=== PATIENT | female | born 2000 | race Caucasian/White ===

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

== ENCOUNTER 2020-05-23 09:41 | Emergency (ER) | payer MEDICAID, OTHER, SELFPAY ==
[~2020-05-23] VITALS: Ht 162.6 cm; Wt 116.0 kg
[~2020-05-23 09:41] MED LIST changes: -TRAZ-160 PO; +TRAZ-252 PO
[2020-05-23 10:26] LABS: BASO # 0.1 10^3/uL (0.0-0.2); BASO % 0.6 % (0.0-1.0); EOS # 0.2 10^3/uL (0.0-0.5); EOS % 1.2 % (0.0-3.0); HEMATOCRIT 45.6 % (36.0-47.0); HEMOGLOBIN 14.6 g/dl (12.0-15.5); LYMPH # 1.8 10^3/uL (1.5-5.0); MEAN CORPUSCULAR HEMOGLOBIN 28.7 pg (27.0-33.0); MEAN CORPUSCULAR VOLUME 89.8 fl (80.0-96.0); MONO # 0.6 10^3/uL (0.0-0.8); MONO % 4.9 % (0.0-5.0); NEUTROPHILS % 78.8 % (36.0-66.0); PLATELET COUNT, AUTOMATED 315 10^3/uL (150-450); RED BLOOD COUNT 5.08 10^6/uL (4.00-5.40); WHITE BLOOD COUNT 12.6 10^3/uL (4.0-10.0)
[2020-05-23] MEDS ORDERED: NS 1,000 ML IV ONE (10:30)
[2020-05-23] MEDS ORDERED: ONDANSETRON 4MG/2ML VIAL IV ONE (10:30)
[2020-05-23] MEDS ORDERED: KETOROLAC 30 MG/ML 1ML VIAL IV ONE (10:30)
[2020-05-23 10:52] LABS: ALBUMIN 4.6 GM/DL (3.2-5.2); BILIRUBIN,DIRECT 0.1 MG/DL (0.0-0.2); BILIRUBIN,TOTAL 0.6 MG/DL (0.2-1.0); TOTAL PROTEIN 8.3 GM/DL (6.4-8.2)
[2020-05-23] MEDS ORDERED: CEFD1CAP8 PO (13:58)
[2020-05-23] MEDS ORDERED: cefTRIAXone SOD 1 GM in D5W MINI-BAG PLUS 50 ML IV ONE (14:00)
[2020-05-23 14:50] VITALS: BP 155/69
--- NOTE | 2020-05-23 15:53 | REP ---
INDICATION: back pain, dysuria COMPARISON: None. TECHNIQUE: Helical scanning is acquired in 4 mm axial images were reformatted. Coronal and sagittal MPR images were generated and reviewed. FINDINGS: Digital preliminary die maker electronic radiograph demonstrates a normal bowel gas pattern. Axial CT images through the lung bases demonstrate no evidence of infiltrate or pleural effusion. There is a small area of pleuroparenchymal fibrosis in the left lower lobe posterolaterally. The liver and the spleen are normal in size homogeneous in texture. No abnormality is noted in the gallbladder or the pancreas. No adrenal lesion is seen. Small and large intestinal bowel loops are normal in the abdomen and pelvis. A normal appendix seen in the right lower quadrant. Urinary bladder is unremarkable. No uterine or significant ovarian abnormality is seen. There is a small follicle cyst in the right ovary. There is [id number] right-sided hydronephrosis and there is perinephric streaking and periureteral streaking associated with right ureteral obstruction. No obstructing mass lesion is seen. No right ureteral calculus is observed. No bladder calculus is seen. No intrarenal calculus is noted on the right. However, there is a 3 mm intrarenal calculus in the upper pole of the left kidney and another tiny 1-2 mm calculus is seen in the lower pole of the left kidney. No bony abnormality is seen. No abdominal wall defect is seen. IMPRESSION: Right hydronephrosis and hydroureter with perinephric and periureteral stranding. No calculus seen. Findings are compatible with recent stone passage. There are contralateral intrarenal calculi in the left kidney without left-sided hydronephrosis. <Electronically signed by Malcolm Godoy > 05/23/20 [id number]
== END 2020-05-23 14:51 | disposition home or self-care (01) ==
LOC: M ED 09:41
DX: N20.0 Calculus of kidney (principal); N13.30 Unspecified hydronephrosis; N39.0 Urinary tract infection, site not specified; F17.200 Nicotine dependence, unspecified, uncomplicated
CPT/HCPCS: 74176; 80047; 80076; 81001; 83690; 84702; 85025; 96361; 96365; 96375; 99284; J0696; J1885; J2405

== ENCOUNTER 2021-10-31 15:47 | Inpatient (IN) | payer MEDICAID, OTHER, SELFPAY ==
[~2021-10-31] VITALS: Ht 162.6 cm; Wt 121.0 kg
[~2021-10-31 15:47] MED LIST changes: +CEFD300C41 PO; +RISP-8; -RISP1TAB3
[2021-10-31 17:24] LABS: HEMATOCRIT 41.6 % (36.0-47.0); HEMOGLOBIN 13.9 g/dl (12.0-15.5); MEAN CORPUSCULAR HEMOGLOBIN 30.4 pg (27.0-33.0); MEAN CORPUSCULAR HGB CONC 33.4 g/dl (32.0-36.5); PLATELET COUNT, AUTOMATED 226 10^3/uL (150-450); RED BLOOD COUNT 4.57 10^6/uL (4.00-5.40); WHITE BLOOD COUNT 7.4 10^3/uL (4.0-10.0)
[2021-10-31 17:33] LABS: RSV AMPLIFICATION NEGATIVE (NEGATIVE)
[2021-10-31 17:54] LABS: ACETAMINOPHEN LEVEL < 2.0 UG/ML (10.0-30.0); ALBUMIN 4.3 GM/DL (3.2-5.2); ALT/SGPT 70 U/L (12-78); BILIRUBIN,DIRECT 0.3 MG/DL (0.0-0.2); BILIRUBIN,TOTAL 1.1 MG/DL (0.2-1.0); BLOOD UREA NITROGEN 8 MG/DL (7-18); CALCIUM LEVEL 9.3 MG/DL (8.5-10.1); CARBON DIOXIDE LEVEL 24 MEQ/L (21-32); CHLORIDE LEVEL 107 MEQ/L (98-107); CREATININE FOR GFR 0.67 MG/DL (0.55-1.30); ETHYL ALCOHOL (ETHANOL) < 0.003 % (0.000-0.010); GLOMERULAR FILTRATION RATE > 60.0 (>60); GLUCOSE, FASTING 93 MG/DL (70-100); POTASSIUM SERUM 3.8 MEQ/L (3.5-5.1); SALICYLATE LEVEL 3.3 MG/DL (5.0-30.0); SODIUM LEVEL 139 MEQ/L (136-145)
[2021-10-31 17:56] LABS: HCG, SERUM QUALITATIVE NEGATIVE (NEGATIVE)
[2021-10-31] MEDS ORDERED: LATU40TA2 PO (19:05)
[2021-10-31] MEDS ORDERED: AMLO1TAB24 PO (19:05)
[2021-10-31] MEDS ORDERED: TRAZ-186 PO (19:06)
[2021-10-31] MEDS ORDERED: MELA3TAB30 PO (19:07)
[2021-11-01 06:22] LABS: AMPHETAMINES LEVEL URINE NEGATIVE (NEGATIVE); BARBITURATES URINE NEGATIVE (NEGATIVE); BENZODIAZEPINES URINE NEGATIVE (NEGATIVE); CANNABINOIDS URINE POSITIVE (NEGATIVE); COCAINE METABOLITE URINE NEGATIVE (NEGATIVE); METHADONE URINE NEGATIVE (NEGATIVE); OPIATES URINE NEGATIVE (NEGATIVE); PHENCYCLIDINE URINE NEGATIVE (NEGATIVE)
[2021-11-01] MEDS ORDERED: CHLORTHALIDONE 12.5MG PER 1/2 TABLET PO SCH (09:00)
[2021-11-01] MEDS ORDERED: MED REC COMMENT (10:22)
[2021-11-01] MEDS ORDERED: HOME MED LIST COMPLETE! XX SCH (10:25)
[2021-11-01] MEDS ORDERED: IBUPROFEN 400MG TAB PO PRN (15:10)
[2021-11-01] MEDS ORDERED: MOM 30ML SUSPENSION UDC PO PRN (15:10)
[2021-11-01] MEDS ORDERED: MAALOX 30 ML SUSP *UDC PO PRN (15:10)
[2021-11-01] MEDS: NICOTINE 21MG/24HR 1 EA TRANSDERMAL TD SCH (17:00)
[2021-11-01] MEDS ORDERED: NICOTINE 21MG/24HR 1 EA TRANSDERMAL TD SCH (17:09)
[2021-11-01] MEDS: ACETAMINOPHEN TAB 650MG DOSE (2X325MG) PO PRN (20:29)
[2021-11-02] MEDS ORDERED: OLANZapine 10 MG TAB PO ONE (00:50)
[2021-11-02] MEDS ORDERED: LORazepam 2 MG TAB PO STA (02:18)
[2021-11-02] MEDS ORDERED: NICOTINE 21MG/24HR 1 EA TRANSDERMAL TD SCH (09:00)
[2021-11-02] MEDS ORDERED: CHLORTHALIDONE 12.5MG PER 1/2 TABLET PO SCH (09:00)
[2021-11-02] MEDS: NICOTINE 21MG/24HR 1 EA TRANSDERMAL TD SCH (09:56)
[2021-11-02] MEDS: amLODIPine 5 MG TAB PO SCH (09:57)
[2021-11-02] MEDS: ACETAMINOPHEN TAB 650MG DOSE (2X325MG) PO PRN (09:57)
[2021-11-02] MEDS: LORazepam 1 MG TAB PO PRN ×2 (09:58→20:36)
[2021-11-02] MEDS ORDERED: OLANZapine ORAL DISINTEGRATING TAB 5MG PO STA (10:57)
[2021-11-02] MEDS: LURASIDONE 20 MG TAB (LATUDA) PO SCH (20:36)
[2021-11-02] MEDS: traZODone 50 MG TAB PO PRN (20:36)
[2021-11-03] MEDS: LORazepam 1 MG TAB PO PRN ×2 (06:33→20:41)
[2021-11-03] MEDS: amLODIPine 5 MG TAB PO SCH (07:53)
[2021-11-03] MEDS: NICOTINE 21MG/24HR 1 EA TRANSDERMAL TD SCH (07:53)
[2021-11-03] MEDS: LURASIDONE 20 MG TAB (LATUDA) PO SCH (20:41)
[2021-11-03] MEDS: traZODone 50 MG TAB PO PRN (20:41)
[2021-11-03] MEDS: ACETAMINOPHEN TAB 650MG DOSE (2X325MG) PO PRN (22:03)
[2021-11-04] MEDS: LORazepam 1 MG TAB PO PRN ×2 (06:49→21:10)
[2021-11-04] MEDS: NICOTINE 21MG/24HR 1 EA TRANSDERMAL TD SCH (09:21)
[2021-11-04] MEDS: amLODIPine 5 MG TAB PO SCH (09:21)
[2021-11-04] MEDS: NICOTINE 14 MG/24 HR TRANSDERMAL TD SCH (09:30)
[2021-11-04] MEDS ORDERED: MAALOX 30 ML SUSP *UDC PO PRN (12:45)
[2021-11-04] MEDS ORDERED: MOM 30ML SUSPENSION UDC PO PRN (12:45)
[2021-11-04 14:38] VITALS: BP 158/96
[2021-11-04] MEDS: traZODone 50 MG TAB PO PRN (20:01)
[2021-11-04] MEDS: LURASIDONE 20 MG TAB (LATUDA) PO SCH (20:01)
[2021-11-04] MEDS: ACETAMINOPHEN TAB 650MG DOSE (2X325MG) PO PRN (20:31)
[2021-11-05 06:37] VITALS: BP 158/99
[2021-11-05] MEDS: amLODIPine 5 MG TAB PO SCH (09:24)
[2021-11-05] MEDS: NICOTINE 14 MG/24 HR TRANSDERMAL TD SCH (09:24)
[2021-11-05] MEDS: LORazepam 1 MG TAB PO PRN (13:32)
[2021-11-05 16:44] VITALS: BP 130/72
[2021-11-05 20:59] VITALS: BP 168/92
[2021-11-05] MEDS ORDERED: LURASIDONE 20 MG TAB (LATUDA) PO SCH (21:00)
[2021-11-05] MEDS ORDERED: LURASIDONE HCL 40MG TAB (LATUDA) PO SCH (21:00)
[2021-11-05] MEDS: traZODone 50 MG TAB PO PRN (21:02)
[2021-11-05] MEDS: ACETAMINOPHEN TAB 650MG DOSE (2X325MG) PO PRN (21:02)
[2021-11-05] MEDS: QUEtiapine FUMARATE 50MG TAB PO SCH (21:03)
[2021-11-05] MEDS: lisinopriL 5 MG TAB PO SCH (21:03)
[2021-11-06] MEDS: LORazepam 1 MG TAB PO PRN (00:05)
[2021-11-06 07:00] VITALS: BP 106/51
[2021-11-06] MEDS: NICOTINE 14 MG/24 HR TRANSDERMAL TD SCH (08:16)
[2021-11-06] MEDS: lisinopriL 5 MG TAB PO SCH ×2 (08:17→21:02)
[2021-11-06] MEDS: amLODIPine 5 MG TAB PO SCH (08:18)
[2021-11-06 10:04] LABS: ALBUMIN 3.9 GM/DL (3.2-5.2); ALT/SGPT 96 U/L (12-78); BILIRUBIN,DIRECT 0.2 MG/DL (0.0-0.2); BILIRUBIN,TOTAL 0.7 MG/DL (0.2-1.0); CHOLESTEROL LEVEL 129 MG/DL (<200); CHOLESTEROL RISK RATIO 2.804 (<5); HDL CHOLESTEROL 46 MG/DL (>40); LDL CHOLESTEROL 59 MG/DL (<100); NON-HDL-C 83 MG/DL; TOTAL PROTEIN 7.2 GM/DL (6.4-8.2); TRIGLYCERIDES LEVEL 122 MG/DL (<150)
[2021-11-06 10:23] LABS: HEPATITIS B SURFACE ANTIGEN NEGATIVE (NEGATIVE)
[2021-11-06 10:34] LABS: HEMOGLOBIN A1c 4.5 %
[2021-11-06 10:51] LABS: HEPATITIS C VIRUS ABY INDEX 0.1 INDEX (<0.8)
[2021-11-06 10:52] LABS: HEPATITIS B CORE ANTIBODY IGM NEGATIVE (NEGATIVE)
[2021-11-06] MEDS ORDERED: LORazepam 2 MG TAB PO PRN (12:10)
[2021-11-06] MEDS: ACETAMINOPHEN TAB 650MG DOSE (2X325MG) PO PRN (12:23)
[2021-11-06] MEDS: OXcarbazepine 300 MG TAB PO SCH ×2 (16:44→21:02)
[2021-11-06 19:05] VITALS: BP 138/69
[2021-11-06] MEDS ORDERED: LURASIDONE 20 MG TAB (LATUDA) PO SCH (21:00)
[2021-11-06] MEDS: QUEtiapine FUMARATE 50MG TAB PO SCH (21:02)
[2021-11-07 06:39] VITALS: BP 144/90
[2021-11-07] MEDS: OXcarbazepine 300 MG TAB PO SCH ×3 (08:08→21:53)
[2021-11-07] MEDS: lisinopriL 5 MG TAB PO SCH ×2 (08:08→21:57)
[2021-11-07] MEDS: NICOTINE 14 MG/24 HR TRANSDERMAL TD SCH (08:08)
[2021-11-07] MEDS: amLODIPine 5 MG TAB PO SCH (08:08)
[2021-11-07 11:08] LABS: ANTINUCLEAR ANTIBODIES DIRECT Negative (Negative)
[2021-11-07 18:50] VITALS: BP 138/86
[2021-11-07] MEDS ORDERED: LURASIDONE 20 MG TAB (LATUDA) PO SCH (21:00)
[2021-11-07] MEDS: QUEtiapine FUMARATE 50MG TAB PO SCH (21:53)
[2021-11-08 06:10] VITALS: BP 111/62
[2021-11-08] MEDS: OXcarbazepine 300 MG TAB PO SCH (08:14)
[2021-11-08] MEDS: NICOTINE 14 MG/24 HR TRANSDERMAL TD SCH (08:14)
[2021-11-08 08:15] VITALS: BP 140/88
[2021-11-08] MEDS: amLODIPine 5 MG TAB PO SCH (08:15)
[2021-11-08] MEDS: lisinopriL 5 MG TAB PO SCH (08:15)
[2021-11-08] MEDS ORDERED: NEOSPORIN TOP OINT 15GM TOP SCH (09:00)
[2021-11-08] MEDS ORDERED: QUET50TA4 PO (09:46)
[2021-11-08] MEDS ORDERED: LATU20TA PO (09:46)
[2021-11-08] MEDS ORDERED: TRAZ-186 PO (09:46)
[2021-11-08] MEDS ORDERED: NICO14PA TD (09:46)
[2021-11-08] MEDS ORDERED: TRIL600T PO (09:46)
[2021-11-08] MEDS ORDERED: LATU80TA2 PO (09:46)
[2021-11-08] MEDS ORDERED: LISI5TAB11 PO (09:46)
[2021-11-08] MEDS ORDERED: BACTDSTA PO (09:55)
[2021-11-08] MEDS ORDERED: TRIPOIN9 TOP (09:55)
[2021-11-08] MEDS ORDERED: BACTRIM 160MG/800MG DS TAB PO ONE (10:00)
[2021-11-08] MEDS ORDERED: BACTRIM 160MG/800MG DS TAB PO SCH (21:00)
== END 2021-11-08 13:30 | disposition home or self-care (01) | DRG 753 ==
LOC: M ED 15:47 → UNDOADMIN 11-01 15:09 → M ED INP 11-01 15:09 → M PSY 11-04 14:27
PROVIDERS: ADMIT Student in an Organized Health Care Education/Training Program; ATTEND Student in an Organized Health Care Education/Training Program
DX: F31.0 Bipolar disorder, current episode hypomanic (principal); F12.90 Cannabis use, unspecified, uncomplicated; F17.210 Nicotine dependence, cigarettes, uncomplicated; F10.10 Alcohol abuse, uncomplicated; Z91.14 Patient's other noncompliance with medication regimen; Z79.899 Other long term (current) drug therapy; I10 Essential (primary) hypertension

== ENCOUNTER 2021-11-12 01:08 | Inpatient (IN) | payer MEDICAID ==
[~2021-11-12] VITALS: Ht 162.6 cm; Wt 125.5 kg
[~2021-11-12 01:08] MED LIST changes: +AMLO1TAB24 PO; +BACTDSTA PO; +LATU20TA PO; +LATU40TA2 PO; +LATU80TA2 PO; +LISI5TAB11 PO; +MED REC COMMENT; +MELA3TAB30 PO; +NICO14PA TD; +QUET50TA4 PO; +TRAZ-186 PO; +TRIL600T PO; +TRIPOIN9 TOP
[2021-11-12 02:18] LABS: HEMATOCRIT 44.8 % (36.0-47.0); HEMOGLOBIN 14.8 g/dl (12.0-15.5); MEAN CORPUSCULAR HEMOGLOBIN 30.5 pg (27.0-33.0); MEAN CORPUSCULAR VOLUME 92.2 fl (80.0-96.0); PLATELET COUNT, AUTOMATED 283 10^3/uL (150-450); RED BLOOD COUNT 4.86 10^6/uL (4.00-5.40); WHITE BLOOD COUNT 9.6 10^3/uL (4.0-10.0)
[2021-11-12] MEDS ORDERED: LORazepam 2 MG TAB PO ONE (02:20)
[2021-11-12 03:49] LABS: ACETAMINOPHEN LEVEL < 2.0 UG/ML (10.0-30.0); ALBUMIN 4.6 GM/DL (3.2-5.2); ALT/SGPT 95 U/L (12-78); BILIRUBIN,DIRECT 0.2 MG/DL (0.0-0.2); BILIRUBIN,TOTAL 0.7 MG/DL (0.2-1.0); BLOOD UREA NITROGEN 17 MG/DL (7-18); CALCIUM LEVEL 9.5 MG/DL (8.5-10.1); CARBON DIOXIDE LEVEL 24 MEQ/L (21-32); CHLORIDE LEVEL 104 MEQ/L (98-107); CREATININE FOR GFR 0.85 MG/DL (0.55-1.30); ETHYL ALCOHOL (ETHANOL) < 0.003 % (0.000-0.010); GLOMERULAR FILTRATION RATE > 60.0 (>60); GLUCOSE, FASTING 83 MG/DL (70-100); POTASSIUM SERUM 4.7 MEQ/L (3.5-5.1); SALICYLATE LEVEL 3.6 MG/DL (5.0-30.0); SODIUM LEVEL 135 MEQ/L (136-145); TOTAL PROTEIN 8.2 GM/DL (6.4-8.2)
[2021-11-12 04:10] LABS: FREE T4 0.92 NG/DL (0.76-1.46)
[2021-11-12 06:48] LABS: RSV AMPLIFICATION NEGATIVE (NEGATIVE)
[2021-11-12] MEDS ORDERED: HOME MED LIST COMPLETE! XX SCH (07:45)
[2021-11-12 09:12] LABS: AMPHETAMINES LEVEL URINE NEGATIVE (NEGATIVE); BARBITURATES URINE NEGATIVE (NEGATIVE); BENZODIAZEPINES URINE NEGATIVE (NEGATIVE); CANNABINOIDS URINE POSITIVE (NEGATIVE); COCAINE METABOLITE URINE NEGATIVE (NEGATIVE); METHADONE URINE NEGATIVE (NEGATIVE); OPIATES URINE NEGATIVE (NEGATIVE); PHENCYCLIDINE URINE NEGATIVE (NEGATIVE)
[2021-11-12] MEDS: BACTRIM 160MG/800MG DS TAB PO SCH ×2 (14:24→19:16)
[2021-11-12] MEDS: lisinopriL 5 MG TAB PO SCH ×2 (14:24→19:17)
[2021-11-12] MEDS: OXcarbazepine 300 MG TAB PO SCH ×3 (14:24→19:17)
[2021-11-12] MEDS: NICOTINE 14 MG/24 HR TRANSDERMAL TD SCH (14:25)
[2021-11-12] MEDS ORDERED: LORazepam 1 MG TAB PO STA (19:02)
[2021-11-12] MEDS ORDERED: LORazepam 2 MG/ML VIAL IM STA (19:15)
[2021-11-12] MEDS: LURASIDONE HCL 40MG TAB (LATUDA) PO SCH (19:16)
[2021-11-12] MEDS: LURASIDONE 20 MG TAB (LATUDA) PO SCH (19:16)
[2021-11-12] MEDS ORDERED: QUEtiapine FUMARATE 50MG TAB PO SCH (21:00)
[2021-11-12] MEDS ORDERED: traZODone 50 MG TAB PO SCH (21:00)
[2021-11-13 08:45] LABS: HCG, SERUM QUALITATIVE NEGATIVE (NEGATIVE)
[2021-11-13] MEDS ORDERED: LORazepam 2 MG TAB PO STA (09:22)
[2021-11-13] MEDS: NICOTINE 14 MG/24 HR TRANSDERMAL TD SCH (09:24)
[2021-11-13] MEDS: BACTRIM 160MG/800MG DS TAB PO SCH ×2 (09:24→21:58)
[2021-11-13] MEDS: lisinopriL 5 MG TAB PO SCH ×2 (09:24→22:00)
[2021-11-13] MEDS: OXcarbazepine 300 MG TAB PO SCH ×3 (09:24→21:59)
[2021-11-13] MEDS ORDERED: MAALOX 30 ML SUSP *UDC PO PRN (11:30)
[2021-11-13] MEDS: amLODIPine 5 MG TAB PO SCH (13:29)
[2021-11-13] MEDS: NEOSPORIN TOP OINT 15GM TOP SCH ×2 (13:29→22:00)
[2021-11-13 15:27] VITALS: BP 118/80
[2021-11-13 15:33] VITALS: BP 118/80
[2021-11-13] MEDS: QUEtiapine FUMARATE 50MG TAB PO SCH (21:59)
[2021-11-13] MEDS: traZODone 50 MG TAB PO SCH (21:59)
[2021-11-13] MEDS: LURASIDONE HCL 40MG TAB (LATUDA) PO SCH (22:02)
[2021-11-13] MEDS: LURASIDONE 20 MG TAB (LATUDA) PO SCH (22:02)
[2021-11-14 06:44] VITALS: BP 115/57
[2021-11-14] MEDS: NEOSPORIN TOP OINT 15GM TOP SCH ×2 (09:26→21:34)
[2021-11-14] MEDS: BACTRIM 160MG/800MG DS TAB PO SCH ×2 (09:28→21:34)
[2021-11-14] MEDS: amLODIPine 5 MG TAB PO SCH (09:28)
[2021-11-14] MEDS: lisinopriL 5 MG TAB PO SCH ×2 (09:29→21:35)
[2021-11-14] MEDS: OXcarbazepine 300 MG TAB PO SCH ×3 (09:29→21:35)
[2021-11-14] MEDS: NICOTINE 21MG/24HR 1 EA TRANSDERMAL TD SCH (09:30)
[2021-11-14 16:01] VITALS: BP 119/73
[2021-11-14] MEDS: LURASIDONE 20 MG TAB (LATUDA) PO SCH (21:34)
[2021-11-14] MEDS: PALIPERIDONE 3 MG ER TAB (INVEGA) PO SCH (21:34)
[2021-11-14] MEDS: QUEtiapine FUMARATE 50MG TAB PO SCH (21:34)
[2021-11-14] MEDS: traZODone 50 MG TAB PO SCH (21:35)
[2021-11-15 06:29] VITALS: BP 146/77
[2021-11-15] MEDS: NEOSPORIN TOP OINT 15GM TOP SCH ×2 (08:53→20:55)
[2021-11-15] MEDS: ACETAMINOPHEN TAB 650MG DOSE (2X325MG) PO PRN (08:54)
[2021-11-15] MEDS: lisinopriL 5 MG TAB PO SCH ×2 (08:55→20:58)
[2021-11-15] MEDS: PALIPERIDONE 3 MG ER TAB (INVEGA) PO SCH ×2 (08:55→20:54)
[2021-11-15] MEDS: amLODIPine 5 MG TAB PO SCH (08:55)
[2021-11-15] MEDS: OXcarbazepine 300 MG TAB PO SCH ×3 (08:55→20:54)
[2021-11-15] MEDS: BACTRIM 160MG/800MG DS TAB PO SCH ×2 (08:55→20:54)
[2021-11-15] MEDS: NICOTINE 21MG/24HR 1 EA TRANSDERMAL TD SCH (08:56)
[2021-11-15] MEDS ORDERED: NYSTATIN 100,000 UNITS/GM TOPICAL PWD 15 GM TOP PRN (10:30)
[2021-11-15] MEDS: MOM 30ML SUSPENSION UDC PO PRN (13:57)
[2021-11-15 18:51] VITALS: BP 131/76
[2021-11-15] MEDS: traZODone 50 MG TAB PO SCH (20:54)
[2021-11-15] MEDS: LURASIDONE 20 MG TAB (LATUDA) PO SCH (20:54)
[2021-11-15] MEDS: QUEtiapine FUMARATE 50MG TAB PO SCH (20:54)
[2021-11-16] MEDS: LORazepam 1 MG TAB PO PRN (01:39)
[2021-11-16 06:24] VITALS: BP 176/126
[2021-11-16 06:49] VITALS: BP 144/92
[2021-11-16] MEDS: NICOTINE 21MG/24HR 1 EA TRANSDERMAL TD SCH (09:44)
[2021-11-16] MEDS: NEOSPORIN TOP OINT 15GM TOP SCH ×2 (09:45→20:50)
[2021-11-16] MEDS: amLODIPine 5 MG TAB PO SCH (09:46)
[2021-11-16] MEDS: OXcarbazepine 300 MG TAB PO SCH ×3 (09:46→20:51)
[2021-11-16] MEDS: PALIPERIDONE 3 MG ER TAB (INVEGA) PO SCH ×2 (09:47→20:51)
[2021-11-16] MEDS: lisinopriL 5 MG TAB PO SCH ×2 (09:47→20:53)
[2021-11-16] MEDS: BACTRIM 160MG/800MG DS TAB PO SCH ×2 (09:47→20:51)
[2021-11-16 18:35] VITALS: BP 138/72
[2021-11-16] MEDS: LURASIDONE 20 MG TAB (LATUDA) PO SCH (20:51)
[2021-11-16] MEDS: traZODone 50 MG TAB PO SCH (20:51)
[2021-11-16] MEDS: QUEtiapine FUMARATE 50MG TAB PO SCH (20:51)
[2021-11-17 06:00] VITALS: BP 136/75
[2021-11-17] MEDS: lisinopriL 5 MG TAB PO SCH ×2 (08:56→20:14)
[2021-11-17] MEDS: BACTRIM 160MG/800MG DS TAB PO SCH ×2 (08:56→20:13)
[2021-11-17] MEDS: amLODIPine 5 MG TAB PO SCH (08:56)
[2021-11-17] MEDS: OXcarbazepine 300 MG TAB PO SCH ×3 (08:56→20:13)
[2021-11-17] MEDS: NICOTINE 21MG/24HR 1 EA TRANSDERMAL TD SCH (08:57)
[2021-11-17] MEDS: PALIPERIDONE 3 MG ER TAB (INVEGA) PO SCH ×2 (08:58→20:13)
[2021-11-17] MEDS: NEOSPORIN TOP OINT 15GM TOP SCH ×2 (08:59→20:13)
[2021-11-17] MEDS ORDERED: PALIPERIDONE PALMITATE 234MG/1.5ML INJ (INVEGA)(FREE PSY INPT ONLY) IM ONE (09:00)
[2021-11-17] MEDS: LORazepam 1 MG TAB PO PRN (15:39)
[2021-11-17 18:29] VITALS: BP 136/78
[2021-11-17] MEDS: traZODone 50 MG TAB PO SCH (20:13)
[2021-11-17] MEDS: QUEtiapine FUMARATE 50MG TAB PO SCH (20:13)
[2021-11-18] MEDS: NEOSPORIN TOP OINT 15GM TOP SCH ×2 (08:11→21:29)
[2021-11-18] MEDS: lisinopriL 5 MG TAB PO SCH ×2 (08:12→21:29)
[2021-11-18] MEDS: BACTRIM 160MG/800MG DS TAB PO SCH ×2 (08:13→21:29)
[2021-11-18] MEDS: OXcarbazepine 300 MG TAB PO SCH ×3 (08:13→21:29)
[2021-11-18] MEDS: PALIPERIDONE 3 MG ER TAB (INVEGA) PO SCH ×2 (08:13→21:29)
[2021-11-18] MEDS: amLODIPine 5 MG TAB PO SCH (08:13)
[2021-11-18] MEDS: NICOTINE 21MG/24HR 1 EA TRANSDERMAL TD SCH (08:13)
[2021-11-18 16:42] VITALS: BP 141/77
[2021-11-18] MEDS: traZODone 50 MG TAB PO SCH (21:29)
[2021-11-18] MEDS: QUEtiapine FUMARATE 50MG TAB PO SCH (21:29)
[2021-11-19 06:27] VITALS: BP 147/88
[2021-11-19] MEDS: NEOSPORIN TOP OINT 15GM TOP SCH (09:00)
[2021-11-19] MEDS: PALIPERIDONE 3 MG ER TAB (INVEGA) PO SCH (10:26)
[2021-11-19] MEDS: lisinopriL 5 MG TAB PO SCH (10:26)
[2021-11-19] MEDS: BACTRIM 160MG/800MG DS TAB PO SCH (10:26)
[2021-11-19] MEDS: amLODIPine 5 MG TAB PO SCH (10:26)
[2021-11-19] MEDS: NICOTINE 21MG/24HR 1 EA TRANSDERMAL TD SCH (10:27)
[2021-11-19] MEDS: OXcarbazepine 300 MG TAB PO SCH ×2 (10:27→16:00)
[2021-11-19] MEDS: LORazepam 1 MG TAB PO PRN (17:59)
[2021-11-19 18:00] VITALS: BP 132/62
[2021-11-20] MEDS: BACTRIM 160MG/800MG DS TAB PO SCH ×2 (00:15→08:42)
[2021-11-20] MEDS: traZODone 50 MG TAB PO SCH ×2 (00:15→21:56)
[2021-11-20] MEDS: PALIPERIDONE 3 MG ER TAB (INVEGA) PO SCH ×3 (00:16→21:55)
[2021-11-20] MEDS: NEOSPORIN TOP OINT 15GM TOP SCH ×3 (00:16→21:00)
[2021-11-20] MEDS: QUEtiapine FUMARATE 50MG TAB PO SCH ×2 (00:16→21:56)
[2021-11-20] MEDS: lisinopriL 5 MG TAB PO SCH ×3 (00:16→21:56)
[2021-11-20] MEDS: OXcarbazepine 300 MG TAB PO SCH ×3 (00:16→21:55)
[2021-11-20 06:52] VITALS: BP 116/71
[2021-11-20] MEDS: NICOTINE 21MG/24HR 1 EA TRANSDERMAL TD SCH (08:42)
[2021-11-20] MEDS: amLODIPine 5 MG TAB PO SCH (08:43)
[2021-11-20] MEDS ORDERED: PALIPERIDONE PALMITATE 156MG/1ML INJ(INVEGA)(FREE PSY INPT ONLY) IM ONE ×2 (09:00→10:15)
[2021-11-20 16:18] VITALS: BP_SYST 124; BP_SYST 136; BP_DIAS 66; BP_DIAS 80
[2021-11-21 06:38] VITALS: BP 137/51
[2021-11-21] MEDS: lisinopriL 5 MG TAB PO SCH ×2 (08:38→20:31)
[2021-11-21] MEDS: OXcarbazepine 300 MG TAB PO SCH ×2 (08:38→20:28)
[2021-11-21] MEDS: amLODIPine 5 MG TAB PO SCH (08:38)
[2021-11-21] MEDS: NICOTINE 21MG/24HR 1 EA TRANSDERMAL TD SCH (08:39)
[2021-11-21] MEDS: PALIPERIDONE 3 MG ER TAB (INVEGA) PO SCH ×2 (08:39→20:28)
[2021-11-21] MEDS: NEOSPORIN TOP OINT 15GM TOP SCH ×2 (11:50→20:27)
[2021-11-21 18:23] VITALS: BP 140/76
[2021-11-21] MEDS: QUEtiapine FUMARATE 50MG TAB PO SCH (20:28)
[2021-11-21] MEDS: LORazepam 1 MG TAB PO PRN (20:28)
[2021-11-21] MEDS: traZODone 50 MG TAB PO SCH (20:28)
[2021-11-22] MEDS: LORazepam 1 MG TAB PO PRN (04:40)
[2021-11-22 06:55] VITALS: BP 153/70
[2021-11-22] MEDS: NEOSPORIN TOP OINT 15GM TOP SCH ×3 (08:54→23:26)
[2021-11-22] MEDS: NICOTINE 21MG/24HR 1 EA TRANSDERMAL TD SCH (08:55)
[2021-11-22] MEDS: amLODIPine 5 MG TAB PO SCH (08:56)
[2021-11-22] MEDS: PALIPERIDONE 3 MG ER TAB (INVEGA) PO SCH (08:56)
[2021-11-22] MEDS: OXcarbazepine 300 MG TAB PO SCH ×4 (08:56→23:25)
[2021-11-22] MEDS: lisinopriL 5 MG TAB PO SCH ×3 (08:56→23:25)
[2021-11-22 16:09] VITALS: BP 129/60
[2021-11-22] MEDS: traZODone 50 MG TAB PO SCH ×2 (21:00→23:24)
[2021-11-22] MEDS: QUEtiapine FUMARATE 100 MG TAB PO SCH ×2 (21:00→23:24)
[2021-11-23 06:11] VITALS: BP 141/85
[2021-11-23] MEDS: lisinopriL 5 MG TAB PO SCH ×2 (07:52→20:30)
[2021-11-23] MEDS: amLODIPine 5 MG TAB PO SCH (07:53)
[2021-11-23] MEDS: OXcarbazepine 300 MG TAB PO SCH ×3 (07:54→20:30)
[2021-11-23] MEDS: NEOSPORIN TOP OINT 15GM TOP SCH ×2 (07:55→20:31)
[2021-11-23] MEDS: NICOTINE 21MG/24HR 1 EA TRANSDERMAL TD SCH (08:03)
[2021-11-23 16:56] VITALS: BP 139/69
[2021-11-23] MEDS: diphenhydrAMINE 50MG CAP PO PRN (19:26)
[2021-11-23] MEDS: QUEtiapine FUMARATE 100 MG TAB PO SCH (20:30)
[2021-11-23] MEDS: traZODone 50 MG TAB PO SCH (20:30)
[2021-11-23] MEDS: MOM 30ML SUSPENSION UDC PO PRN (20:57)
[2021-11-24 06:25] VITALS: BP 150/90
[2021-11-24] MEDS: NEOSPORIN TOP OINT 15GM TOP SCH ×2 (08:04→20:19)
[2021-11-24] MEDS: NICOTINE 21MG/24HR 1 EA TRANSDERMAL TD SCH (08:05)
[2021-11-24] MEDS: OXcarbazepine 300 MG TAB PO SCH ×3 (08:05→20:18)
[2021-11-24] MEDS: lisinopriL 5 MG TAB PO SCH ×2 (08:05→20:18)
[2021-11-24] MEDS: amLODIPine 5 MG TAB PO SCH (08:06)
[2021-11-24 16:30] VITALS: BP 130/74
[2021-11-24] MEDS: traZODone 50 MG TAB PO SCH (20:18)
[2021-11-24] MEDS: QUEtiapine FUMARATE 100 MG TAB PO SCH (20:18)
[2021-11-24] MEDS: LORazepam 1 MG TAB PO PRN (21:28)
[2021-11-25 06:22] VITALS: BP 138/86
[2021-11-25] MEDS: lisinopriL 5 MG TAB PO SCH ×2 (08:40→20:12)
[2021-11-25] MEDS: OXcarbazepine 300 MG TAB PO SCH ×3 (08:40→20:07)
[2021-11-25] MEDS: NICOTINE 21MG/24HR 1 EA TRANSDERMAL TD SCH (08:40)
[2021-11-25] MEDS: NEOSPORIN TOP OINT 15GM TOP SCH ×2 (08:41→20:07)
[2021-11-25] MEDS: amLODIPine 5 MG TAB PO SCH (08:41)
[2021-11-25 18:41] VITALS: BP 124/68
[2021-11-25] MEDS: traZODone 50 MG TAB PO SCH (20:05)
[2021-11-25] MEDS: QUEtiapine FUMARATE 100 MG TAB PO SCH (20:07)
[2021-11-26] MEDS: ACETAMINOPHEN TAB 650MG DOSE (2X325MG) PO PRN (03:30)
[2021-11-26] MEDS: LORazepam 1 MG TAB PO PRN (03:46)
[2021-11-26 06:30] VITALS: BP 139/81
[2021-11-26] MEDS: LITHIUM CARBONATE 150 MG CAP PO SCH ×2 (09:26→20:07)
[2021-11-26] MEDS: OXcarbazepine 150 MG TAB PO SCH ×2 (09:26→20:07)
[2021-11-26] MEDS: amLODIPine 5 MG TAB PO SCH ×2 (09:26→20:11)
[2021-11-26] MEDS: NICOTINE 21MG/24HR 1 EA TRANSDERMAL TD SCH (09:27)
[2021-11-26] MEDS: lisinopriL 5 MG TAB PO SCH (09:28)
[2021-11-26] MEDS: NEOSPORIN TOP OINT 15GM TOP SCH ×2 (09:28→20:07)
[2021-11-26 17:47] VITALS: BP 139/80
[2021-11-26] MEDS: QUEtiapine FUMARATE 100 MG TAB PO SCH (20:07)
[2021-11-26] MEDS: traZODone 50 MG TAB PO SCH (20:07)
[2021-11-27] MEDS: LORazepam 1 MG TAB PO PRN ×3 (02:39→20:18)
[2021-11-27 06:49] VITALS: BP 130/64
[2021-11-27] MEDS: NICOTINE 21MG/24HR 1 EA TRANSDERMAL TD SCH (08:43)
[2021-11-27] MEDS: OXcarbazepine 150 MG TAB PO SCH (08:44)
[2021-11-27] MEDS: LITHIUM CARBONATE 150 MG CAP PO SCH (08:44)
[2021-11-27] MEDS: amLODIPine 5 MG TAB PO SCH ×2 (08:44→20:16)
[2021-11-27] MEDS: NEOSPORIN TOP OINT 15GM TOP SCH ×2 (08:45→20:18)
[2021-11-27] MEDS: diphenhydrAMINE 50MG CAP PO PRN ×2 (14:19→20:27)
[2021-11-27 16:23] VITALS: BP 112/60
[2021-11-27] MEDS: QUEtiapine FUMARATE 100 MG TAB PO SCH (20:15)
[2021-11-27] MEDS: LITHIUM CARBONATE 300 MG CAP PO SCH (20:16)
[2021-11-27] MEDS: traZODone 50 MG TAB PO SCH ×2 (20:18→20:27)
[2021-11-28 06:20] VITALS: BP 146/94
[2021-11-28] MEDS ORDERED: ACETAMINOPHEN TAB 650MG DOSE (2X325MG) PO PRN (06:35)
[2021-11-28] MEDS: NICOTINE 21MG/24HR 1 EA TRANSDERMAL TD SCH (08:08)
[2021-11-28] MEDS: NEOSPORIN TOP OINT 15GM TOP SCH ×2 (08:08→20:07)
[2021-11-28] MEDS: amLODIPine 5 MG TAB PO SCH ×2 (08:08→20:07)
[2021-11-28] MEDS: LITHIUM CARBONATE 300 MG CAP PO SCH ×3 (08:08→20:06)
[2021-11-28 18:17] VITALS: BP 145/86
[2021-11-28] MEDS: traZODone 50 MG TAB PO SCH (20:06)
[2021-11-28] MEDS: QUEtiapine FUMARATE 100 MG TAB PO SCH (20:06)
[2021-11-28] MEDS ORDERED: LITHIUM CARBONATE 300 MG CAP PO SCH (21:00)
[2021-11-29] MEDS: OLANZapine ORAL DISINTEGRATING TAB 5MG PO PRN ×2 (03:08→11:26)
[2021-11-29] MEDS: diphenhydrAMINE 50MG CAP PO PRN ×2 (05:01→16:21)
[2021-11-29] MEDS ORDERED: LORazepam 2 MG TAB PO ONE (06:00)
[2021-11-29] MEDS: NICOTINE 21MG/24HR 1 EA TRANSDERMAL TD SCH (08:27)
[2021-11-29] MEDS: LITHIUM CARBONATE 300 MG CAP PO SCH ×3 (08:28→20:10)
[2021-11-29] MEDS: amLODIPine 5 MG TAB PO SCH ×2 (08:28→20:10)
[2021-11-29] MEDS: NEOSPORIN TOP OINT 15GM TOP SCH ×2 (08:29→20:09)
[2021-11-29] MEDS: IBUPROFEN 600MG TAB PO PRN (17:00)
[2021-11-29 18:36] VITALS: BP 140/73
[2021-11-29] MEDS: traZODone 50 MG TAB PO SCH (20:09)
[2021-11-29] MEDS: QUEtiapine FUMARATE 100 MG TAB PO SCH (20:10)
[2021-11-30] MEDS: OLANZapine ORAL DISINTEGRATING TAB 5MG PO PRN ×2 (02:31→16:05)
[2021-11-30] MEDS: IBUPROFEN 600MG TAB PO PRN (03:34)
[2021-11-30 05:22] VITALS: BP 134/62
[2021-11-30] MEDS ORDERED: BACITRACIN OINTMENT 30GM TUBE TOP PRN (05:45)
[2021-11-30] MEDS: LITHIUM CARBONATE 300 MG CAP PO SCH ×3 (08:20→20:06)
[2021-11-30] MEDS: NEOSPORIN TOP OINT 15GM TOP SCH ×2 (08:20→20:05)
[2021-11-30] MEDS: NICOTINE 21MG/24HR 1 EA TRANSDERMAL TD SCH (08:21)
[2021-11-30] MEDS: amLODIPine 5 MG TAB PO SCH ×2 (08:21→20:05)
[2021-11-30] MEDS: diphenhydrAMINE 50MG CAP PO PRN (10:24)
[2021-11-30] MEDS: BENZTROPINE 0.5 MG TAB PO PRN (16:34)
[2021-11-30] MEDS: traZODone 50 MG TAB PO SCH (20:05)
[2021-11-30] MEDS: QUEtiapine FUMARATE 100 MG TAB PO SCH (20:06)
[2021-12-01] MEDS: OLANZapine ORAL DISINTEGRATING TAB 5MG PO PRN ×2 (06:35→23:10)
[2021-12-01 07:01] VITALS: BP 142/95
[2021-12-01] MEDS: amLODIPine 5 MG TAB PO SCH ×2 (08:10→20:21)
[2021-12-01] MEDS: LITHIUM CARBONATE 300 MG CAP PO SCH ×3 (08:10→20:19)
[2021-12-01] MEDS: NICOTINE 21MG/24HR 1 EA TRANSDERMAL TD SCH (08:11)
[2021-12-01] MEDS: NEOSPORIN TOP OINT 15GM TOP SCH ×2 (09:49→20:20)
[2021-12-01] MEDS: BENZTROPINE 0.5 MG TAB PO PRN (13:57)
[2021-12-01 18:25] VITALS: BP 143/68
[2021-12-01] MEDS: QUEtiapine FUMARATE 100 MG TAB PO SCH (20:19)
[2021-12-01] MEDS: traZODone 50 MG TAB PO SCH (20:19)
[2021-12-01] MEDS: diphenhydrAMINE 50MG CAP PO PRN (23:36)
[2021-12-02] MEDS ORDERED: LORazepam 2 MG TAB PO ONE (04:00)
[2021-12-02] MEDS ORDERED: diphenhydrAMINE 50MG CAP PO ONE (04:00)
[2021-12-02] MEDS: OLANZapine ORAL DISINTEGRATING TAB 5MG PO PRN ×2 (07:21→19:42)
[2021-12-02] MEDS: NEOSPORIN TOP OINT 15GM TOP SCH ×2 (08:23→20:16)
[2021-12-02] MEDS: LITHIUM CARBONATE 300 MG CAP PO SCH ×2 (08:24→20:14)
[2021-12-02] MEDS: NICOTINE 21MG/24HR 1 EA TRANSDERMAL TD SCH (08:24)
[2021-12-02] MEDS: amLODIPine 5 MG TAB PO SCH ×2 (08:24→20:14)
[2021-12-02] MEDS ORDERED: LITHIUM CARBONATE 300 MG CAP PO ONE (09:50)
[2021-12-02] MEDS: PALIPERIDONE 6 MG ER TAB (INVEGA) PO SCH (10:03)
[2021-12-02 16:16] VITALS: BP 139/72
[2021-12-02] MEDS: QUEtiapine FUMARATE 100 MG TAB PO SCH (20:13)
[2021-12-02] MEDS: traZODone 50 MG TAB PO SCH (20:13)
[2021-12-03] MEDS: OLANZapine ORAL DISINTEGRATING TAB 5MG PO PRN ×2 (03:01→13:11)
[2021-12-03] MEDS: PALIPERIDONE 6 MG ER TAB (INVEGA) PO SCH (07:29)
[2021-12-03] MEDS: LITHIUM CARBONATE 300 MG CAP PO SCH ×2 (07:29→20:04)
[2021-12-03] MEDS: amLODIPine 5 MG TAB PO SCH ×2 (07:29→20:05)
[2021-12-03] MEDS: NICOTINE 21MG/24HR 1 EA TRANSDERMAL TD SCH (07:30)
[2021-12-03] MEDS: NEOSPORIN TOP OINT 15GM TOP SCH ×2 (07:30→20:05)
[2021-12-03] MEDS: IBUPROFEN 600MG TAB PO PRN ×2 (10:52→17:07)
[2021-12-03] MEDS: hydrOXYzine 50 MG TAB PO PRN (15:03)
[2021-12-03] MEDS ORDERED: OLANZapine 2.5MG TABLET PO ONE (16:15)
[2021-12-03 17:19] VITALS: BP 134/65
[2021-12-03] MEDS: traZODone 50 MG TAB PO SCH (20:04)
[2021-12-03] MEDS: QUEtiapine FUMARATE 100 MG TAB PO SCH (20:04)
[2021-12-04] MEDS: hydrOXYzine 50 MG TAB PO PRN ×3 (02:34→18:26)
[2021-12-04] MEDS: IBUPROFEN 600MG TAB PO PRN ×2 (03:16→20:03)
[2021-12-04 06:21] VITALS: BP 130/63
[2021-12-04] MEDS: LITHIUM CARBONATE 300 MG CAP PO SCH ×2 (08:16→20:00)
[2021-12-04] MEDS: PALIPERIDONE 6 MG ER TAB (INVEGA) PO SCH (08:16)
[2021-12-04] MEDS: amLODIPine 5 MG TAB PO SCH ×2 (08:17→20:02)
[2021-12-04] MEDS: NEOSPORIN TOP OINT 15GM TOP SCH ×3 (08:18→20:03)
[2021-12-04] MEDS: NICOTINE 21MG/24HR 1 EA TRANSDERMAL TD SCH (08:18)
[2021-12-04] MEDS ORDERED: risperiDONE 2 MG TAB PO ONE (11:00)
[2021-12-04] MEDS ORDERED: TUBERCULIN PPD 5 UNITS/0.1 ML ID ONE (12:45)
[2021-12-04 17:34] VITALS: BP 153/78
[2021-12-04] MEDS: risperiDONE 2 MG TAB PO SCH (20:00)
[2021-12-04] MEDS: QUEtiapine FUMARATE 100 MG TAB PO SCH (20:02)
[2021-12-04] MEDS: traZODone 50 MG TAB PO SCH (20:03)
[2021-12-05] MEDS: hydrOXYzine 50 MG TAB PO PRN ×3 (01:59→23:03)
[2021-12-05] MEDS: IBUPROFEN 600MG TAB PO PRN (03:13)
[2021-12-05 06:44] VITALS: BP 151/88
[2021-12-05] MEDS: amLODIPine 5 MG TAB PO SCH ×2 (08:03→21:01)
[2021-12-05] MEDS: LITHIUM CARBONATE 300 MG CAP PO SCH ×2 (08:03→21:01)
[2021-12-05] MEDS: NICOTINE 21MG/24HR 1 EA TRANSDERMAL TD SCH (08:03)
[2021-12-05] MEDS: risperiDONE 2 MG TAB PO SCH ×2 (08:03→21:02)
[2021-12-05] MEDS: NEOSPORIN TOP OINT 15GM TOP SCH ×2 (08:30→21:03)
[2021-12-05] MEDS: BENZTROPINE 0.5 MG TAB PO PRN (11:28)
[2021-12-05 18:00] VITALS: BP 138/84
[2021-12-05] MEDS: QUEtiapine FUMARATE 100 MG TAB PO SCH (21:01)
[2021-12-05] MEDS: PRAZOSIN 1 MG CAP PO SCH (21:02)
[2021-12-05] MEDS: diphenhydrAMINE 50MG CAP PO PRN (23:03)
[2021-12-05] MEDS: traZODone 50 MG TAB PO PRN (23:03)
[2021-12-06] MEDS: IBUPROFEN 600MG TAB PO PRN ×3 (05:20→23:29)
[2021-12-06] MEDS: hydrOXYzine 50 MG TAB PO PRN ×3 (07:20→22:05)
[2021-12-06 08:27] VITALS: BP 139/91
[2021-12-06] MEDS: amLODIPine 5 MG TAB PO SCH ×2 (08:39→20:10)
[2021-12-06] MEDS: NICOTINE 21MG/24HR 1 EA TRANSDERMAL TD SCH (08:40)
[2021-12-06] MEDS: LITHIUM CARBONATE 300 MG CAP PO SCH ×2 (08:41→20:09)
[2021-12-06] MEDS: risperiDONE 2 MG TAB PO SCH ×2 (08:41→20:10)
[2021-12-06] MEDS: NEOSPORIN TOP OINT 15GM TOP SCH ×2 (11:56→20:09)
[2021-12-06] MEDS ORDERED: PPD DOCUMENTATION ENTRY MISC XX ONE (13:00)
[2021-12-06 18:00] VITALS: BP 132/92
[2021-12-06] MEDS: QUEtiapine FUMARATE 100 MG TAB PO SCH (20:08)
[2021-12-06] MEDS: risperiDONE 1 MG TAB PO SCH (20:10)
[2021-12-06] MEDS: PRAZOSIN 1 MG CAP PO SCH (20:11)
[2021-12-07] MEDS: OLANZapine ORAL DISINTEGRATING TAB 5MG PO PRN ×3 (04:01→16:58)
[2021-12-07] MEDS: hydrOXYzine 50 MG TAB PO PRN ×3 (06:01→22:14)
[2021-12-07 06:59] VITALS: BP 137/83
[2021-12-07] MEDS: NICOTINE 21MG/24HR 1 EA TRANSDERMAL TD SCH (07:36)
[2021-12-07] MEDS: risperiDONE 2 MG TAB PO SCH ×2 (07:37→20:07)
[2021-12-07] MEDS: LITHIUM CARBONATE 300 MG CAP PO SCH ×2 (07:37→20:06)
[2021-12-07] MEDS: amLODIPine 5 MG TAB PO SCH ×2 (07:40→20:07)
[2021-12-07] MEDS: NEOSPORIN TOP OINT 15GM TOP SCH ×2 (08:34→20:06)
[2021-12-07] MEDS: IBUPROFEN 600MG TAB PO PRN (13:39)
[2021-12-07] MEDS: diphenhydrAMINE 50MG CAP PO PRN (14:16)
[2021-12-07 16:07] VITALS: BP 152/88
[2021-12-07] MEDS: risperiDONE 1 MG TAB PO SCH (20:06)
[2021-12-07] MEDS: QUEtiapine FUMARATE 100 MG TAB PO SCH (20:06)
[2021-12-07] MEDS: PRAZOSIN 1 MG CAP PO SCH (20:07)
[2021-12-07] MEDS: traZODone 50 MG TAB PO PRN (22:14)
[2021-12-08] MEDS: diphenhydrAMINE 50MG CAP PO PRN ×3 (01:38→20:17)
[2021-12-08] MEDS: IBUPROFEN 600MG TAB PO PRN ×3 (01:40→17:57)
[2021-12-08] MEDS: LITHIUM CARBONATE 300 MG CAP PO SCH ×2 (07:40→20:18)
[2021-12-08] MEDS: NICOTINE 21MG/24HR 1 EA TRANSDERMAL TD SCH (07:41)
[2021-12-08] MEDS: risperiDONE 2 MG TAB PO SCH ×2 (07:41→20:18)
[2021-12-08] MEDS: NEOSPORIN TOP OINT 15GM TOP SCH ×2 (07:42→20:19)
[2021-12-08] MEDS: amLODIPine 5 MG TAB PO SCH ×2 (07:42→20:23)
[2021-12-08] MEDS: OLANZapine ORAL DISINTEGRATING TAB 5MG PO PRN ×2 (09:52→15:56)
[2021-12-08] MEDS: hydrOXYzine 50 MG TAB PO PRN ×2 (11:59→17:57)
[2021-12-08 15:48] VITALS: BP 148/63
[2021-12-08] MEDS: PRAZOSIN 1 MG CAP PO SCH (20:17)
[2021-12-08] MEDS: QUEtiapine FUMARATE 100 MG TAB PO SCH (20:17)
[2021-12-08] MEDS: risperiDONE 1 MG TAB PO SCH (20:18)
[2021-12-09] MEDS: traZODone 50 MG TAB PO PRN ×2 (01:17→20:12)
[2021-12-09] MEDS: hydrOXYzine 50 MG TAB PO PRN ×2 (01:17→20:12)
[2021-12-09] MEDS ORDERED: QUEtiapine FUMARATE 50MG TAB PO ONE (03:35)
[2021-12-09] MEDS: diphenhydrAMINE 50MG CAP PO PRN (03:46)
[2021-12-09] MEDS: OLANZapine ORAL DISINTEGRATING TAB 5MG PO PRN (03:47)
[2021-12-09] MEDS: IBUPROFEN 600MG TAB PO PRN (04:16)
[2021-12-09 06:19] VITALS: BP 143/82
[2021-12-09] MEDS: LITHIUM CARBONATE 300 MG CAP PO SCH (08:07)
[2021-12-09] MEDS: amLODIPine 5 MG TAB PO SCH ×2 (08:07→20:13)
[2021-12-09] MEDS: NICOTINE 21MG/24HR 1 EA TRANSDERMAL TD SCH (08:08)
[2021-12-09] MEDS: BENZTROPINE 0.5 MG TAB PO PRN (08:08)
[2021-12-09] MEDS: risperiDONE 2 MG TAB PO SCH (08:08)
[2021-12-09] MEDS: NEOSPORIN TOP OINT 15GM TOP SCH (09:00)
[2021-12-09] MEDS ORDERED: HYDROCORTISONE 1% CREAM 30 GM TOP PRN (10:00)
[2021-12-09 14:47] LABS: ALBUMIN 3.8 GM/DL (3.2-5.2); ALT/SGPT 65 U/L (12-78); BILIRUBIN,TOTAL 0.5 MG/DL (0.2-1.0); BLOOD UREA NITROGEN 6 MG/DL (7-18); CALCIUM LEVEL 9.6 MG/DL (8.5-10.1); CARBON DIOXIDE LEVEL 27 MEQ/L (21-32); CHLORIDE LEVEL 107 MEQ/L (98-107); CREATININE FOR GFR 0.71 MG/DL (0.55-1.30); GLOMERULAR FILTRATION RATE > 60.0 (>60); GLUCOSE, FASTING 120 MG/DL (70-100); POTASSIUM SERUM 3.8 MEQ/L (3.5-5.1); SODIUM LEVEL 141 MEQ/L (136-145)
[2021-12-09] MEDS ORDERED: TRIAMCINOLONE ACET 0.1% CREAM 15 GM TOP SCH (15:00)
[2021-12-09 19:25] VITALS: BP 156/90
[2021-12-09] MEDS: risperiDONE 1 MG TAB PO SCH (20:12)
[2021-12-09] MEDS: QUEtiapine FUMARATE 100 MG TAB PO SCH (20:12)
[2021-12-09] MEDS: LITHIUM CARBONATE 150 MG CAP PO SCH (20:12)
[2021-12-10] MEDS: OLANZapine ORAL DISINTEGRATING TAB 5MG PO PRN (00:15)
[2021-12-10] MEDS: IBUPROFEN 600MG TAB PO PRN (01:30)
[2021-12-10 07:16] VITALS: BP 157/94
[2021-12-10] MEDS: LITHIUM CARBONATE 150 MG CAP PO SCH (08:13)
[2021-12-10] MEDS: amLODIPine 5 MG TAB PO SCH ×2 (08:13→20:05)
[2021-12-10] MEDS: risperiDONE 1 MG TAB PO SCH (08:13)
[2021-12-10] MEDS: NICOTINE 21MG/24HR 1 EA TRANSDERMAL TD SCH (08:14)
[2021-12-10] MEDS: hydrOXYzine 50 MG TAB PO PRN ×2 (14:44→23:32)
[2021-12-10 19:24] VITALS: BP 139/51
[2021-12-10] MEDS: QUEtiapine FUMARATE 100 MG TAB PO SCH (20:05)
[2021-12-10] MEDS: traZODone 50 MG TAB PO PRN (20:05)
[2021-12-10] MEDS: TRIAMCINOLONE ACET 0.1% CREAM 80 GM TOP SCH (20:06)
[2021-12-11 06:57] VITALS: BP 158/94
[2021-12-11] MEDS: NICOTINE 21MG/24HR 1 EA TRANSDERMAL TD SCH (08:22)
[2021-12-11] MEDS: amLODIPine 5 MG TAB PO SCH ×2 (08:22→20:08)
[2021-12-11] MEDS: TRIAMCINOLONE ACET 0.1% CREAM 80 GM TOP SCH ×2 (08:23→20:08)
[2021-12-11] MEDS: hydrOXYzine 50 MG TAB PO PRN ×2 (10:05→12:55)
[2021-12-11] MEDS: diphenhydrAMINE 50MG CAP PO PRN (11:52)
[2021-12-11] MEDS: LORazepam 1 MG TAB PO PRN (14:43)
[2021-12-11] MEDS: IBUPROFEN 600MG TAB PO PRN (15:42)
[2021-12-11 18:02] VITALS: BP 175/97
[2021-12-11] MEDS: QUEtiapine FUMARATE 100 MG TAB PO SCH (20:07)
[2021-12-12 06:01] VITALS: BP 145/83
[2021-12-12] MEDS: amLODIPine 5 MG TAB PO SCH ×2 (08:19→20:44)
[2021-12-12] MEDS: NICOTINE 21MG/24HR 1 EA TRANSDERMAL TD SCH (08:20)
[2021-12-12] MEDS: TRIAMCINOLONE ACET 0.1% CREAM 80 GM TOP SCH ×2 (08:21→20:34)
[2021-12-12] MEDS: hydrOXYzine 50 MG TAB PO PRN ×2 (09:32→17:58)
[2021-12-12] MEDS: MOM 30ML SUSPENSION UDC PO PRN (09:48)
[2021-12-12] MEDS: diphenhydrAMINE 50MG CAP PO PRN ×2 (11:54→17:58)
[2021-12-12 18:17] VITALS: BP 117/68
[2021-12-12] MEDS: QUEtiapine FUMARATE 100 MG TAB PO SCH (20:36)
[2021-12-13] MEDS: IBUPROFEN 600MG TAB PO PRN (00:09)
[2021-12-13] MEDS: LORazepam 1 MG TAB PO PRN (04:42)
[2021-12-13 06:53] VITALS: BP 154/96
[2021-12-13] MEDS: amLODIPine 5 MG TAB PO SCH ×2 (08:12→20:13)
[2021-12-13] MEDS: NICOTINE 21MG/24HR 1 EA TRANSDERMAL TD SCH (08:13)
[2021-12-13] MEDS ORDERED: POLYVINYL ALCOHOL OPHTH SOLN 15 ML(LIQUITEARS) OU PRN (12:05)
[2021-12-13 18:00] VITALS: BP 138/86
[2021-12-13] MEDS: QUEtiapine FUMARATE 100 MG TAB PO SCH (20:13)
[2021-12-13] MEDS: PRAZOSIN 1 MG CAP PO SCH (20:13)
[2021-12-14 06:00] VITALS: BP 152/80
[2021-12-14] MEDS: NICOTINE 21MG/24HR 1 EA TRANSDERMAL TD SCH (08:23)
[2021-12-14] MEDS: amLODIPine 5 MG TAB PO SCH ×2 (08:23→20:11)
[2021-12-14 18:00] VITALS: BP 140/76
[2021-12-14] MEDS: QUEtiapine FUMARATE 100 MG TAB PO SCH (20:07)
[2021-12-14] MEDS: PRAZOSIN 1 MG CAP PO SCH (20:11)
[2021-12-15] MEDS: IBUPROFEN 600MG TAB PO PRN (01:18)
[2021-12-15 06:49] VITALS: BP 137/84
[2021-12-15] MEDS: amLODIPine 5 MG TAB PO SCH ×2 (08:05→20:39)
[2021-12-15] MEDS: NICOTINE 21MG/24HR 1 EA TRANSDERMAL TD SCH (08:05)
[2021-12-15 18:00] VITALS: BP 144/70
[2021-12-15] MEDS: QUEtiapine FUMARATE 100 MG TAB PO SCH (20:38)
[2021-12-15] MEDS: PRAZOSIN 1 MG CAP PO SCH (20:38)
[2021-12-15] MEDS: diphenhydrAMINE 50MG CAP PO PRN (21:24)
[2021-12-16 06:00] VITALS: BP 162/104
[2021-12-16] MEDS: amLODIPine 5 MG TAB PO SCH ×2 (08:12→20:07)
[2021-12-16] MEDS: NICOTINE 21MG/24HR 1 EA TRANSDERMAL TD SCH (08:13)
[2021-12-16] MEDS: hydrOXYzine 50 MG TAB PO PRN ×2 (10:39→16:34)
[2021-12-16] MEDS ORDERED: HALOPERIDOL DECANOATE 100 MG/ML VIAL (J1631) IM ONE (10:45)
[2021-12-16] MEDS: diphenhydrAMINE 50MG CAP PO PRN ×2 (11:41→21:18)
[2021-12-16 18:00] VITALS: BP 154/88
[2021-12-16] MEDS: QUEtiapine FUMARATE 100 MG TAB PO SCH (20:06)
[2021-12-16] MEDS: traZODone 50 MG TAB PO PRN (20:06)
[2021-12-16] MEDS: PRAZOSIN 1 MG CAP PO SCH (20:06)
[2021-12-17] MEDS: amLODIPine 5 MG TAB PO SCH ×2 (08:40→20:12)
[2021-12-17] MEDS: NICOTINE 21MG/24HR 1 EA TRANSDERMAL TD SCH (08:41)
[2021-12-17 13:10] VITALS: BP 132/82
[2021-12-17 18:00] VITALS: BP 142/78
[2021-12-17] MEDS: diphenhydrAMINE 50MG CAP PO PRN (18:31)
[2021-12-17] MEDS: QUEtiapine FUMARATE 100 MG TAB PO SCH (20:12)
[2021-12-17] MEDS: PRAZOSIN 1 MG CAP PO SCH (20:14)
[2021-12-17] MEDS: traZODone 50 MG TAB PO PRN (21:15)
[2021-12-17] MEDS: IBUPROFEN 600MG TAB PO PRN (21:16)
[2021-12-18] MEDS: hydrOXYzine 50 MG TAB PO PRN ×2 (02:51→15:16)
[2021-12-18 06:27] VITALS: BP 125/61
[2021-12-18] MEDS: amLODIPine 5 MG TAB PO SCH ×2 (08:06→20:09)
[2021-12-18] MEDS: NICOTINE 21MG/24HR 1 EA TRANSDERMAL TD SCH (08:07)
[2021-12-18 17:33] VITALS: BP 140/86
[2021-12-18] MEDS: PRAZOSIN 1 MG CAP PO SCH (20:10)
[2021-12-18] MEDS: QUEtiapine FUMARATE 100 MG TAB PO SCH (20:10)
[2021-12-19 07:12] VITALS: BP 141/88
[2021-12-19 08:19] VITALS: BP 141/88
[2021-12-19] MEDS: amLODIPine 5 MG TAB PO SCH (08:19)
[2021-12-19] MEDS: NICOTINE 21MG/24HR 1 EA TRANSDERMAL TD SCH (08:20)
[2021-12-19] MEDS ORDERED: AMLO1TAB24 PO (09:38)
[2021-12-19] MEDS ORDERED: BENZ0.5T23 PO (09:38)
[2021-12-19] MEDS ORDERED: HALO5TAB33 PO (09:38)
[2021-12-19] MEDS ORDERED: MINI1CAP PO (09:38)
[2021-12-19] MEDS ORDERED: NICO21PAT TD (09:38)
[2021-12-19] MEDS ORDERED: TRAZ-252 PO (09:38)
[2021-12-19] MEDS ORDERED: HALO10TA20 PO (09:38)
[2021-12-19] MEDS ORDERED: QUET100T2 PO (09:38)
[2021-12-19] MEDS ORDERED: BACI50OI TOP (09:38)
[2021-12-19] MEDS ORDERED: DIPH50CA PO (09:38)
== END 2021-12-19 12:34 | disposition home or self-care (01) | DRG 750 ==
LOC: M ED 01:08 → M ED INP 11-13 11:58 → M PSY 11-13 15:21
PROVIDERS: ADMIT Student in an Organized Health Care Education/Training Program; ATTEND Student in an Organized Health Care Education/Training Program
DX: F25.0 Schizoaffective disorder, bipolar type (principal); R45.850 Homicidal ideations; R45.851 Suicidal ideations; F17.200 Nicotine dependence, unspecified, uncomplicated; F12.90 Cannabis use, unspecified, uncomplicated; F60.89 Other specific personality disorders; Z79.899 Other long term (current) drug therapy; Z91.010 Allergy to peanuts; I10 Essential (primary) hypertension; F10.10 Alcohol abuse, uncomplicated; L25.9 Unspecified contact dermatitis, unspecified cause

== ENCOUNTER 2021-12-21 11:19 | Inpatient (IN) | payer MEDICAID ==
[~2021-12-21] VITALS: Ht 162.6 cm; Wt 57.0 kg
[~2021-12-21 11:19] MED LIST changes: +BACI50OI TOP; +BENZ0.5T23 PO; +DIPH50CA PO; +HALO10TA20 PO; +HALO5TAB33 PO; +MINI1CAP PO; +NICO21PAT TD; +QUET100T2 PO
[2021-12-21 12:01] LABS: HEMATOCRIT 35.1 % (36.0-47.0); HEMOGLOBIN 11.7 g/dl (12.0-15.5); MEAN CORPUSCULAR HEMOGLOBIN 30.1 pg (27.0-33.0); MEAN CORPUSCULAR HGB CONC 33.3 g/dl (32.0-36.5); MEAN CORPUSCULAR VOLUME 90.2 fl (80.0-96.0); PLATELET COUNT, AUTOMATED 298 10^3/uL (150-450); RED BLOOD COUNT 3.89 10^6/uL (4.00-5.40)
[2021-12-21 12:28] LABS: RSV AMPLIFICATION NEGATIVE (NEGATIVE)
[2021-12-21 12:39] LABS: ACETAMINOPHEN LEVEL < 2.0 UG/ML (10.0-30.0); ALBUMIN 3.6 GM/DL (3.2-5.2); ALT/SGPT 77 U/L (12-78); BILIRUBIN,DIRECT 0.2 MG/DL (0.0-0.2); BILIRUBIN,TOTAL 0.4 MG/DL (0.2-1.0); BLOOD UREA NITROGEN 14 MG/DL (7-18); CALCIUM LEVEL 9.2 MG/DL (8.5-10.1); CARBON DIOXIDE LEVEL 28 MEQ/L (21-32); CHLORIDE LEVEL 106 MEQ/L (98-107); ETHYL ALCOHOL (ETHANOL) < 0.003 % (0.000-0.010); GLOMERULAR FILTRATION RATE > 60.0 (>60); GLUCOSE, FASTING 112 MG/DL (70-100); POTASSIUM SERUM 3.9 MEQ/L (3.5-5.1); SALICYLATE LEVEL < 1.7 MG/DL (5.0-30.0); SODIUM LEVEL 141 MEQ/L (136-145); TOTAL PROTEIN 7.1 GM/DL (6.4-8.2)
[2021-12-21] MEDS ORDERED: LORazepam 2 MG/ML VIAL IM ONE (12:40)
[2021-12-21] MEDS ORDERED: OLANZapine INTRAMUSCULAR 10MG VIAL IM ONE (12:40)
[2021-12-21 12:43] LABS: HCG, SERUM QUALITATIVE NEGATIVE (NEGATIVE)
[2021-12-21] MEDS ORDERED: NICOTINE 21MG/24HR 1 EA TRANSDERMAL TD ONE (16:30)
[2021-12-21] MEDS ORDERED: BACIOIN5 TOP (19:45)
[2021-12-21] MEDS ORDERED: DIPH50CA29 PO (19:45)
[2021-12-21] MEDS ORDERED: AMLO1TAB24 PO (19:45)
[2021-12-21] MEDS ORDERED: HALO10TA2 GT (19:45)
[2021-12-21] MEDS ORDERED: QUET200T2 PO (19:45)
[2021-12-21] MEDS ORDERED: TRAZ1TAB10 PO (19:45)
[2021-12-21] MEDS ORDERED: NICO1DIS12 TOP (19:45)
[2021-12-21] MEDS ORDERED: HALO5TAB33 PO (19:45)
[2021-12-21] MEDS ORDERED: BENZ0.5T23 PO (19:45)
[2021-12-21] MEDS ORDERED: PRAZ1CAP PO (19:45)
[2021-12-21] MEDS ORDERED: HOME MED LIST COMPLETE! XX SCH (19:50)
[2021-12-22 04:00] LABS: AMPHETAMINES LEVEL URINE NEGATIVE (NEGATIVE); BARBITURATES URINE NEGATIVE (NEGATIVE); BENZODIAZEPINES URINE NEGATIVE (NEGATIVE); CANNABINOIDS URINE POSITIVE (NEGATIVE); COCAINE METABOLITE URINE NEGATIVE (NEGATIVE); METHADONE URINE NEGATIVE (NEGATIVE); OPIATES URINE NEGATIVE (NEGATIVE); PHENCYCLIDINE URINE NEGATIVE (NEGATIVE)
[2021-12-22] MEDS: amLODIPine 5 MG TAB PO SCH ×2 (08:20→20:48)
[2021-12-22] MEDS ORDERED: diphenhydrAMINE 50MG CAP PO ONE (14:05)
[2021-12-22] MEDS ORDERED: IBUPROFEN 600MG TAB PO ONE (14:05)
[2021-12-22] MEDS ORDERED: LORazepam 1 MG TAB PO ONE (15:45)
[2021-12-22] MEDS ORDERED: PRAZOSIN 1 MG CAP PO SCH (21:00)
[2021-12-22] MEDS ORDERED: QUEtiapine FUMARATE 200 MG TAB PO SCH (21:00)
[2021-12-23] MEDS ORDERED: LORazepam 1 MG TAB PO STA (00:39)
[2021-12-23] MEDS ORDERED: NICOTINE 21MG/24HR 1 EA TRANSDERMAL TD ONE (07:30)
[2021-12-23] MEDS: amLODIPine 5 MG TAB PO SCH ×2 (09:07→20:09)
[2021-12-23] MEDS ORDERED: BACITRACIN OINTMENT 30GM TUBE TOP PRN (10:10)
[2021-12-23] MEDS ORDERED: LORazepam 1 MG TAB PO ONE (11:15)
[2021-12-23] MEDS ORDERED: traZODone 50 MG TAB PO PRN (12:45)
[2021-12-23] MEDS ORDERED: MOM 30ML SUSPENSION UDC PO PRN (12:45)
[2021-12-23] MEDS ORDERED: MAALOX 30 ML SUSP *UDC PO PRN (12:45)
[2021-12-23] MEDS ORDERED: ACETAMINOPHEN TAB 650MG DOSE (2X325MG) PO PRN (12:45)
[2021-12-23] MEDS ORDERED: BENZTROPINE 0.5 MG TAB PO PRN (12:45)
[2021-12-23 15:00] VITALS: BP 134/78
[2021-12-23] MEDS: QUEtiapine FUMARATE 200 MG TAB PO SCH (20:07)
[2021-12-23] MEDS: PRAZOSIN 1 MG CAP PO SCH (20:08)
[2021-12-24 06:19] VITALS: BP 148/98
[2021-12-24] MEDS: amLODIPine 5 MG TAB PO SCH ×2 (08:17→19:32)
[2021-12-24] MEDS: NICOTINE 21MG/24HR 1 EA TRANSDERMAL TOP SCH (08:17)
[2021-12-24] MEDS: hydrOXYzine 50 MG TAB PO PRN (13:11)
[2021-12-24 18:00] VITALS: BP 140/77
[2021-12-24] MEDS: PRAZOSIN 1 MG CAP PO SCH (19:32)
[2021-12-24] MEDS: QUEtiapine FUMARATE 200 MG TAB PO SCH (19:32)
[2021-12-24] MEDS ORDERED: OLANZapine ORAL DISINTEGRATING TAB 5MG PO ONE (20:35)
[2021-12-24] MEDS ORDERED: LORazepam 2 MG/ML VIAL IM STA (21:02)
[2021-12-24] MEDS ORDERED: HALOPERIDOL 5MG/ML VIAL (J1630 PER 1) IM STA (21:02)
[2021-12-24] MEDS ORDERED: diphenhydrAMINE 50MG/ML VIAL (J1200) IM STA (21:02)
[2021-12-25 07:06] VITALS: BP 108/58
[2021-12-25] MEDS: amLODIPine 5 MG TAB PO SCH ×2 (08:51→20:22)
[2021-12-25] MEDS: NICOTINE 21MG/24HR 1 EA TRANSDERMAL TOP SCH (08:51)
[2021-12-25 18:00] VITALS: BP 125/70
[2021-12-25] MEDS: PRAZOSIN 1 MG CAP PO SCH (20:22)
[2021-12-25] MEDS: QUEtiapine FUMARATE 200 MG TAB PO SCH (20:22)
[2021-12-26 06:30] VITALS: BP 145/74
[2021-12-26] MEDS: NICOTINE 21MG/24HR 1 EA TRANSDERMAL TOP SCH (08:02)
[2021-12-26] MEDS: amLODIPine 5 MG TAB PO SCH ×2 (08:03→20:02)
[2021-12-26] MEDS: hydrOXYzine 50 MG TAB PO PRN (10:43)
[2021-12-26] MEDS ORDERED: hydrOXYzine 25 MG TAB PO PRN (11:50)
[2021-12-26] MEDS ORDERED: LORazepam 1 MG TAB PO PRN (11:50)
[2021-12-26] MEDS: PROPRANOLOL 10 MG TAB PO SCH ×3 (12:01→20:02)
[2021-12-26 18:36] VITALS: BP 113/59
[2021-12-26] MEDS: PRAZOSIN 1 MG CAP PO SCH (20:02)
[2021-12-26] MEDS ORDERED: QUEtiapine FUMARATE 200 MG TAB PO SCH (21:00)
[2021-12-26] MEDS ORDERED: QUEtiapine FUMARATE 50MG TAB PO SCH (21:00)
[2021-12-27 06:56] VITALS: BP 116/57
[2021-12-27] MEDS: NICOTINE 21MG/24HR 1 EA TRANSDERMAL TOP SCH (09:34)
[2021-12-27] MEDS: PROPRANOLOL 10 MG TAB PO SCH (09:34)
[2021-12-27] MEDS: amLODIPine 5 MG TAB PO SCH (09:35)
[2021-12-27] MEDS ORDERED: PRAZ1CAP PO (10:03)
[2021-12-27] MEDS ORDERED: HALO5TAB33 PO ×2 (10:03)
[2021-12-27] MEDS ORDERED: TRAZ-252 PO (10:03)
[2021-12-27] MEDS ORDERED: HYDR1TAB33 PO (10:03)
[2021-12-27] MEDS ORDERED: PROP10TA56 PO (10:03)
[2021-12-27] MEDS ORDERED: ATIV1TAB7 PO (10:03)
[2021-12-27] MEDS ORDERED: QUET50TA4 PO (10:03)
[2021-12-27] MEDS ORDERED: QUET200T2 PO (10:03)
[2021-12-27] MEDS ORDERED: HALO10TA2 GT (10:03)
[2021-12-27] MEDS ORDERED: HALD100I2 IM (10:07)
[2021-12-27] MEDS ORDERED: PROPRANOLOL 10 MG TAB PO ONE (12:25)
[2021-12-27 12:37] VITALS: BP 120/67
== END 2021-12-27 12:38 | disposition home or self-care (01) | DRG 753 ==
LOC: M ED 11:19 → M ED INP 12-23 12:42 → M PSY 12-23 14:07
PROVIDERS: ADMIT Student in an Organized Health Care Education/Training Program; ATTEND Student in an Organized Health Care Education/Training Program
DX: F31.9 Bipolar disorder, unspecified (principal); I10 Essential (primary) hypertension; R45.851 Suicidal ideations; F17.200 Nicotine dependence, unspecified, uncomplicated; F60.89 Other specific personality disorders; F12.90 Cannabis use, unspecified, uncomplicated; Z79.899 Other long term (current) drug therapy; Z91.010 Allergy to peanuts; Z86.16 Personal history of COVID-19

== ENCOUNTER 2022-01-06 00:17 | Emergency (ER) | payer MEDICAID ==
[~2022-01-06] VITALS: Ht 162.6 cm; Wt 123.4 kg
[~2022-01-06 00:17] MED LIST changes: +ATIV1TAB7 PO; +BACIOIN5 TOP; +DIPH50CA29 PO; +HALD100I2 IM; +HALO10TA2 GT; +HYDR1TAB33 PO; +NICO1DIS12 TOP; +PRAZ1CAP PO; +PROP10TA56 PO; +QUET200T2 PO; +TRAZ1TAB10 PO
[2022-01-06 00:59] LABS: HEMATOCRIT 38.4 % (36.0-47.0); HEMOGLOBIN 12.7 g/dl (12.0-15.5); MEAN CORPUSCULAR HEMOGLOBIN 29.1 pg (27.0-33.0); MEAN CORPUSCULAR HGB CONC 33.1 g/dl (32.0-36.5); MEAN CORPUSCULAR VOLUME 87.9 fl (80.0-96.0); PLATELET COUNT, AUTOMATED 309 10^3/uL (150-450); RED BLOOD COUNT 4.37 10^6/uL (4.00-5.40); WHITE BLOOD COUNT 12.7 10^3/uL (4.0-10.0)
[2022-01-06 01:35] LABS: RSV AMPLIFICATION NEGATIVE (NEGATIVE)
[2022-01-06 01:42] LABS: ALT/SGPT 30 U/L (12-78); BILIRUBIN,DIRECT 0.2 MG/DL (0.0-0.2); BILIRUBIN,TOTAL 0.3 MG/DL (0.2-1.0); BLOOD UREA NITROGEN 13 MG/DL (7-18); CALCIUM LEVEL 9.2 MG/DL (8.5-10.1); CARBON DIOXIDE LEVEL 26 MEQ/L (21-32); CHLORIDE LEVEL 105 MEQ/L (98-107); CREATININE FOR GFR 0.57 MG/DL (0.55-1.30); ETHYL ALCOHOL (ETHANOL) < 0.003 % (0.000-0.010); GLOMERULAR FILTRATION RATE > 60.0 (>60); GLUCOSE, FASTING 104 MG/DL (70-100); POTASSIUM SERUM 3.9 MEQ/L (3.5-5.1); SALICYLATE LEVEL 3.6 MG/DL (5.0-30.0); SODIUM LEVEL 139 MEQ/L (136-145); TOTAL PROTEIN 7.8 GM/DL (6.4-8.2)
[2022-01-06 01:43] LABS: HCG, SERUM QUALITATIVE NEGATIVE (NEGATIVE)
[2022-01-06 02:13] LABS: ACETAMINOPHEN LEVEL < 2.0 UG/ML (10.0-30.0)
[2022-01-06] MEDS ORDERED: PROP10TA56 PO (05:05)
[2022-01-06] MEDS ORDERED: LORA1TAB4 PO (05:05)
[2022-01-06] MEDS ORDERED: QUET50TA4 PO (05:05)
[2022-01-06] MEDS ORDERED: HALO5TAB33 PO ×2 (05:05)
[2022-01-06] MEDS ORDERED: PRAZ1CAP PO (05:05)
[2022-01-06] MEDS ORDERED: QUET200T2 PO (05:05)
[2022-01-06] MEDS ORDERED: HALO10TA20 PO (05:05)
[2022-01-06] MEDS ORDERED: TRAZ-252 PO (05:05)
[2022-01-06] MEDS ORDERED: HYDR50TA70 PO (05:05)
[2022-01-06] MEDS ORDERED: HOME MED LIST COMPLETE! XX SCH (05:10)
[2022-01-06 08:46] VITALS: BP 124/63
[2022-01-06] MEDS ORDERED: PROPRANOLOL 10 MG TAB PO SCH (09:00)
[2022-01-06] MEDS ORDERED: amLODIPine 5 MG TAB PO SCH (09:00)
[2022-01-06 12:14] LABS: AMPHETAMINES LEVEL URINE NEGATIVE (NEGATIVE); BARBITURATES URINE NEGATIVE (NEGATIVE); BENZODIAZEPINES URINE NEGATIVE (NEGATIVE); CANNABINOIDS URINE POSITIVE (NEGATIVE); COCAINE METABOLITE URINE NEGATIVE (NEGATIVE); METHADONE URINE NEGATIVE (NEGATIVE); OPIATES URINE NEGATIVE (NEGATIVE); PHENCYCLIDINE URINE NEGATIVE (NEGATIVE)
[2022-01-06 14:55] VITALS: BP 128/79
[2022-01-09] MEDS ORDERED: AMLO1TAB24 PO (15:50)
[2022-01-09] MEDS ORDERED: BENZ0.5T23 PO (15:50)
== END 2022-01-06 14:57 | disposition home or self-care (01) ==
LOC: M ED 00:17
DX: F32.A Depression, unspecified (principal); R45.851 Suicidal ideations; F17.200 Nicotine dependence, unspecified, uncomplicated; F10.10 Alcohol abuse, uncomplicated; F12.10 Cannabis abuse, uncomplicated; Z91.010 Allergy to peanuts; Z79.899 Other long term (current) drug therapy

== ENCOUNTER 2023-12-11 12:24 | Inpatient (IN) | payer OTHER ==
[~2023-12-11] VITALS: Ht 162.6 cm; Wt 150.4 kg
[~2023-12-11 12:24] MED LIST changes: +BENZ0.5T2 PO; -BENZ0.5T23 PO; +CEFD1CAP9 PO; -CEFD300C41 PO; +HYDR50TA70 PO; +LORA1TAB23 PO; +RISP-105; -RISP-8
[2023-12-11 14:14] LABS: HEMATOCRIT 42.1 % (36.0-47.0); HEMOGLOBIN 14.3 g/dl (12.0-15.5); MEAN CORPUSCULAR HEMOGLOBIN 30.4 pg (27.0-33.0); MEAN CORPUSCULAR VOLUME 89.4 fl (80.0-96.0); PLATELET COUNT, AUTOMATED 240 10^3/uL (150-450); RED BLOOD COUNT 4.71 10^6/uL (4.00-5.40)
[2023-12-11 14:40] LABS: ETHYL ALCOHOL (ETHANOL) 0.003 % (0.000-0.010)
[2023-12-11 14:42] LABS: ALBUMIN 4.2 G/DL (3.2-5.2); ALKALINE PHOSPHATASE 84 U/L (46-116); ALT/SGPT 29 U/L (7.0-40); AST/SGOT 17 U/L (<34); BILIRUBIN,DIRECT 0.4 MG/DL (<0.4); BILIRUBIN,TOTAL 0.9 MG/DL (0.3-1.2); BLOOD UREA NITROGEN 8 MG/DL (9-23); CALCIUM LEVEL 9.1 MG/DL (8.5-10.1); CARBON DIOXIDE LEVEL 26 MMOL/L (20-31); CHLORIDE LEVEL 110 MMOL/L (98-107); CREATININE FOR GFR 0.58 MG/DL (0.55-1.30); GLOMERULAR FILTRATION RATE > 60.0 (>60); GLUCOSE, FASTING 83 MG/DL (60-100); POTASSIUM SERUM 4.1 MMOL/L (3.5-5.1); SALICYLATE LEVEL < 3.0 MG/DL (<30); SODIUM LEVEL 141 MMOL/L (136-145); TOTAL PROTEIN 7.1 G/DL (5.7-8.2)
[2023-12-11 14:44] LABS: THYROID STIMULATING HORMONE 1.139 uIU/ML (0.55-4.78)
[2023-12-11 14:54] LABS: HCG, SERUM QUALITATIVE NEGATIVE (NEGATIVE)
[2023-12-11] MEDS: LORazepam 2 MG TAB PO ONE (15:54)
[2023-12-11 17:42] LABS: METHADONE URINE NEGATIVE (NEGATIVE); OPIATES URINE NEGATIVE (NEGATIVE); PHENCYCLIDINE URINE NEGATIVE (NEGATIVE)
[2023-12-11 17:43] LABS: AMPHETAMINES LEVEL URINE NEGATIVE (NEGATIVE); BARBITURATES URINE NEGATIVE (NEGATIVE); BENZODIAZEPINES URINE NEGATIVE (NEGATIVE); COCAINE METABOLITE URINE NEGATIVE (NEGATIVE)
[2023-12-11 17:46] LABS: CANNABINOIDS URINE POSITIVE (NEGATIVE)
[2023-12-11] MEDS ORDERED: BUPR1TAB52 PO (18:36)
[2023-12-11] MEDS ORDERED: HALO1TAB19 PO (18:36)
[2023-12-11] MEDS ORDERED: BENZ0.5T2 PO (18:36)
[2023-12-11] MEDS ORDERED: HOME MED LIST COMPLETE! XX SCH (18:40)
[2023-12-11 21:44] VITALS: BP 126/60; TEMP 97.7; O2SAT 100
[2023-12-11] MEDS: diphenhydrAMINE 25MG CAP PO PRN (21:46)
[2023-12-12] MEDS: traZODone 50 MG TAB PO PRN (00:28)
[2023-12-12 06:16] VITALS: BP_SYST 132; BP_SYST 148; BP_DIAS 65; BP_DIAS 88; TEMP 97; O2SAT 100
[2023-12-12] MEDS: ACETAMINOPHEN TAB 650MG DOSE (2X325MG) PO PRN (08:40)
[2023-12-12] MEDS: LURASIDONE 20 MG TAB (LATUDA) PO SCH (13:28)
[2023-12-12] MEDS ORDERED: amLODIPine 5 MG TAB PO SCH (14:50)
[2023-12-12] MEDS: amLODIPine 5 MG TAB PO ONE (15:52)
[2023-12-12 15:54] VITALS: BP 166/88; TEMP 98.1; O2SAT 98
[2023-12-13] MEDS: OLANZapine ORAL DISINTEGRATING TAB 5MG PO PRN (00:56)
[2023-12-13 06:21] VITALS: BP 148/95; TEMP 97.4; O2SAT 100
[2023-12-13] MEDS: amLODIPine 5 MG TAB PO SCH (08:12)
[2023-12-13 15:48] VITALS: BP 146/72; TEMP 98; O2SAT 100
[2023-12-13] MEDS: LORazepam 1 MG TAB PO PRN (22:36)
[2023-12-14] MEDS: MOM 30ML SUSPENSION UDC PO PRN (04:06)
[2023-12-14] MEDS: risperiDONE 0.5 MG TAB PO SCH (14:49)
[2023-12-14] MEDS: DIVALPROEX 125 MG TAB PO SCH (14:55)
[2023-12-14 18:00] VITALS: BP 128/73; TEMP 97.8
[2023-12-14] MEDS: MAALOX 30 ML SUSP *UDC PO PRN (21:33)
[2023-12-15 06:14] VITALS: BP 143/76; TEMP 97; O2SAT 100
[2023-12-15 08:17] VITALS: BP 129/86
[2023-12-15] MEDS: NICOTINE 21MG/24HR 1 EA TRANSDERMAL TD PRN (15:57)
[2023-12-15 18:30] VITALS: BP 147/75; TEMP 97.4
[2023-12-15] MEDS: traZODone 50 MG TAB PO PRN (20:09)
[2023-12-15] MEDS: risperiDONE 1 MG TAB PO SCH (20:09)
[2023-12-15] MEDS: DIVALPROEX 250MG TAB PO SCH (20:09)
[2023-12-16] MEDS: IBUPROFEN 400MG TAB PO PRN (04:37)
[2023-12-16 06:26] VITALS: TEMP 97.1; O2SAT 97
[2023-12-16 18:33] VITALS: BP 136/86; TEMP 97.5
[2023-12-17] MEDS: LORazepam 1 MG TAB PO PRN (02:58)
[2023-12-17 05:57] VITALS: BP 130/66; TEMP 97.1; O2SAT 99
[2023-12-17 18:45] VITALS: BP 143/62; TEMP 97.9; O2SAT 99
[2023-12-17] MEDS: DIVALPROEX 125 MG TAB PO SCH (20:19)
[2023-12-18] MEDS: diphenhydrAMINE 50MG CAP PO PRN (01:32)
[2023-12-18] MEDS ORDERED: RISP1TAB42 PO (06:14)
[2023-12-18] MEDS ORDERED: TRAZ-252 PO (06:14)
[2023-12-18] MEDS ORDERED: AMLO1TAB24 PO (06:14)
[2023-12-18] MEDS ORDERED: DEPA1TAB PO (06:14)
[2023-12-18] MEDS ORDERED: DEPA250T32 PO (06:14)
[2023-12-18 06:30] VITALS: BP 134/63; TEMP 97.5; O2SAT 99
[2023-12-18 08:03] VITALS: BP 137/87
[2023-12-18] MEDS: DIVALPROEX 250MG TAB PO SCH (08:03)
== END 2023-12-18 14:37 | disposition home or self-care (01) | DRG 753 ==
LOC: M ED 12:24 → M ED INP 19:56 → M PSY 20:35
PROVIDERS: ADMIT Student in an Organized Health Care Education/Training Program; ATTEND Student in an Organized Health Care Education/Training Program
DX: F31.2 Bipolar disorder, current episode manic severe with psychotic features (principal); I10 Essential (primary) hypertension; Z79.899 Other long term (current) drug therapy; Z91.010 Allergy to peanuts; Z86.16 Personal history of COVID-19; Z63.8 Other specified problems related to primary support group

== ENCOUNTER → 2024-03-21 | Outpatient (REF) | payer OTHER, MEDICAID ==
[~2024-03-21] MED LIST changes: +BUPR1TAB52 PO; +DEPA1TAB PO; +DEPA250T32 PO; +HALO1TAB19 PO; +RISP1TAB42 PO
[2024-03-21 19:23] LABS: ALBUMIN 3.9 G/DL (3.2-5.2); ALKALINE PHOSPHATASE 60 U/L (46-116); ALT/SGPT < 9 U/L (7.0-40); AST/SGOT < 8 U/L (<34); BILIRUBIN,TOTAL 0.4 MG/DL (0.3-1.2); BLOOD UREA NITROGEN 10 MG/DL (9-23); CALCIUM LEVEL 9.1 MG/DL (8.5-10.1); CARBON DIOXIDE LEVEL 28 MMOL/L (20-31); CHLORIDE LEVEL 109 MMOL/L (98-107); CHOLESTEROL LEVEL 138 MG/DL (<200); CHOLESTEROL RISK RATIO 2.85 (<5); GLOMERULAR FILTRATION RATE > 60.0 (>60); GLUCOSE, FASTING 85 MG/DL (60-100); HDL CHOLESTEROL 48.4 MG/DL (>40); LDL CHOLESTEROL 73.6 MG/DL (<100); NON-HDL-C 89.6 MG/DL; POTASSIUM SERUM 4.3 MMOL/L (3.5-5.1); SODIUM LEVEL 138 MMOL/L (136-145); TOTAL PROTEIN 7.1 G/DL (5.7-8.2); TRIGLYCERIDES LEVEL 80 MG/DL (<150)
[2024-03-21 19:25] LABS: FREE T4 1.21 NG/DL (0.89-1.76); THYROID STIMULATING HORMONE 2.439 uIU/ML (0.55-4.78)
[2024-03-21 19:26] LABS: TOTAL 25(OH) VITAMIN D 70.8 NG/ML (20.0-100.0)
== END ==
LOC: M LAB REF 16:18
PROVIDERS: ATTEND Family Medicine Addiction Medicine
DX: I10 Essential (primary) hypertension (principal); E55.9 Vitamin D deficiency, unspecified

== ENCOUNTER → 2024-05-24 | Outpatient (CLI) | payer OTHER ==
[2024-05-24 12:50] LABS: BASO # 0.1 10^3/uL (0.0-0.2); BASO % 0.8 % (0.0-1.0); EOS # 0.3 10^3/uL (0.0-0.5); EOS % 4.3 % (0.0-3.0); HEMATOCRIT 41.7 % (36.0-47.0); HEMOGLOBIN 14.1 g/dl (12.0-15.5); LYMPH # 1.3 10^3/uL (1.5-5.0); LYMPH % 19.4 % (24.0-44.0); MEAN CORPUSCULAR HEMOGLOBIN 30.3 pg (27.0-33.0); MEAN CORPUSCULAR HGB CONC 33.8 g/dl (32.0-36.5); MEAN CORPUSCULAR VOLUME 89.7 fl (80.0-96.0); MONO # 0.5 10^3/uL (0.0-0.8); MONO % 7.5 % (2.0-8.0); NEUTROPHILS # 4.4 10^3/uL (1.5-8.5); NEUTROPHILS % 67.7 % (36.0-66.0); PLATELET COUNT, AUTOMATED 183 10^3/uL (150-450); RED BLOOD COUNT 4.65 10^6/uL (4.00-5.40); WHITE BLOOD COUNT 6.5 10^3/uL (4.0-10.0)
[2024-05-24 13:11] LABS: VALPROIC ACID (DEPAKOTE) 43.9 UG/ML (50.0-100.0)
[2024-05-24 13:13] LABS: ALBUMIN 3.8 G/DL (3.2-5.2); ALKALINE PHOSPHATASE 64 U/L (35-104); ALT/SGPT 16 U/L (7.0-40); AST/SGOT < 8 U/L (<34); BILIRUBIN,DIRECT 0.2 MG/DL (<0.4); BILIRUBIN,TOTAL 0.5 MG/DL (0.3-1.2); BLOOD UREA NITROGEN 16 MG/DL (9-23); CARBON DIOXIDE LEVEL 29 MMOL/L (20-31); CHLORIDE LEVEL 107 MMOL/L (98-107); CREATININE FOR GFR 0.67 MG/DL (0.55-1.30); GLOMERULAR FILTRATION RATE > 60.0 (>60); GLUCOSE, FASTING 87 MG/DL (60-100); POTASSIUM SERUM 4.7 MMOL/L (3.5-5.1); SODIUM LEVEL 139 MMOL/L (136-145)
== END ==
LOC: M LAB 12:20
PROVIDERS: ATTEND Registered Nurse Psychiatric/Mental Health
DX: F31.12 Bipolar disorder, current episode manic without psychotic features, moderate (principal)

== ENCOUNTER → 2024-10-25 | Outpatient (CLI) | payer OTHER ==
[2024-10-25 11:51] LABS: VALPROIC ACID (DEPAKOTE) 50.9 UG/ML (50.0-100.0)
[2024-10-25 11:53] LABS: BILIRUBIN,DIRECT 0.3 MG/DL (<0.4); BILIRUBIN,TOTAL 0.8 MG/DL (0.3-1.2); TOTAL PROTEIN 7.3 G/DL (5.7-8.2)
== END ==
LOC: M LAB 10:48
PROVIDERS: ATTEND Registered Nurse Psychiatric/Mental Health
DX: F31.12 Bipolar disorder, current episode manic without psychotic features, moderate (principal)

== ENCOUNTER 2024-10-26 13:36 | Emergency (ER) | payer OTHER ==
[~2024-10-26] VITALS: Ht 162.6 cm; Wt 100.4 kg
[2024-10-26 13:42] VITALS: BP 146/96; TEMP 97.3; O2SAT 97
== END 2024-10-26 16:08 | disposition left against medical advice (07) ==
LOC: M ED 13:36
DX: Z53.21 Procedure and treatment not carried out due to patient leaving prior to being seen by health care provider (principal)